=== PATIENT | male | born 1950 | race Caucasian/White ===

== ENCOUNTER 2016-08-15 17:18 | Emergency (ER) | payer MEDICARE ==
[~2016-08-15] VITALS: Ht 182.9 cm; Wt 73.0 kg
[2016-08-15] VITALS (9 sets, daily range): BP systolic 80–101; BP diastolic 52–56; PULSE 72–78; RESP 20–24; TEMP 98.5–98.8; O2SAT 91–97
[~2016-08-15 17:18] MED LIST: ASPI81 PO; CARV6.25 PO; CYMB60CA PO; ESCI10TA PO; METH10TA6 PO; METO10TA PO; OXYC15TA PO; PERC10TA27 PO; PRIN10TA PO; SIMV40 PO; TAB-TAB PO; TEST1.623 TD; TRAZ50TA78 PO; [UNRECOGNIZED DRUG - OTHER] PO
--- NOTE | 2016-08-15 17:43 | PD ---
HPI Chief Complaint: Respiratory Symptoms Time Seen by Provider: 17:24 Travel History International Travel<30 days: No Contact w/Intl Traveler<30days: No Traveled to known affect area: No History of Present Illness HPI This patient complains of chest pain and shortness of breath. Started yesterday evening. He said rather continual chest pressure since then. He has had 2 stents placed 5 years ago. He denies any cardiac testing since he really doesn't seem sure. Patient is a lifelong smoker who has continued to smoke despite coronary disease. Denies fever. No pleuritic pain. Symptoms severity is moderate. No alleviating factors. Duration one day PFSH Past Medical History Autoimmune Disease: No Blood Disorders: No Depression: Yes Cancer: No Cardiovascular Problems: Yes High Cholesterol: Yes Chemotherapy: No COPD: Yes Coronary Artery Disease: Yes Diabetes: No Diminished Hearing: No Endocrine: No Gastrointestinal Disorders: Yes GERD: Yes Genitourinary: No Hypertension: Yes Immune Disorder: No Musculoskeletal: Yes Neurologic: No (FAMILY LISTS "BACKPAIN" IN NEURO CATEGORY) Psychiatric: Yes Respiratory: Yes Radiation Therapy: No Sleep Apnea: Yes Past Surgical History Coronary Stent: Yes (2 STENTS) Tonsillectomy: Yes Other Surgery: Yes (RIGHT LEG SURGERY IN 2002) Social History Alcohol Use: Yes (OCCASIONAL) Tobacco Use: Yes (1/2 PPD) Substance Use: No Allergies-Medications (Allergen,Severity, Reaction): Coded Allergies: No Known Allergies (Verified , 11/10/15) Reported Meds & Prescriptions Reported Meds & Active Scripts Active Levaquin (Levofloxacin) 750 Mg Tablet 750 Mg PO DAILY Ventolin Hfa 18 GM Inh (Albuterol Sulfate) 90 Mcg/Act Aer 2 Puff INH Q6H PRN Reported V-C Forte (Multiple Vitamins W/ Minerals) Cap 1 Cap PO DAILY Cymbalta (Duloxetine Hcl) 60 Mg Cap 60 Mg PO DAILY Reglan 10 mg (Metoclopramide HCl) 10 Mg Tab 1 Tab PO BID Oxycodone (Oxycodone HCl) 15 Mg Tab 15 Mg PO Q8HR PRN Percocet 10-325 mg (Oxycodone-Acetaminophen 10-325 mg) 1 Tab 1 Tab PO Q8HR PRN Methylphenidate ER (8 Hour) (Methylphenidate HCl) 10 Mg Tab 1 Tab PO DAILY Escitalopram Oxalate 10 Mg Tab 10 Mg PO HS Desyrel (Trazodone HCl) 50 Mg Tab 150 Mg PO HS Androgel (Testosterone) 1.62 % Gel 1.62 % TD DAILY Simvastatin 40 mg (Simvastatin) 40 Mg Tab 1 Tab PO HS Multivitamin (Multivitamins) 1 Tab Tab 1 Tab PO DAILY Aspirin 81 Mg Tab 81 Mg PO BID Prinzide 10/12.5 (HCTZ/Lisinopril) Tab 1 Tab PO DAILY Coreg 6.25 mg (Carvedilol) 6.25 Mg Tab 6.25 Mg PO BID Review of Systems General / Constitutional: No: Fever Eyes: No: Visual changes HENT: No: Headaches Cardiovascular: Positive: Chest Pain or Discomfort Respiratory: Positive: Cough, Shortness of Breath, Wheezing Gastrointestinal: No: Abdominal Pain Genitourinary: No: Dysuria Musculoskeletal: No: Pain Skin: No Rash Neurologic: No: Weakness Psychiatric: No: Depression Endocrine: No: Polydipsia Hematologic/Lymphatic: No: Easy Bruising Physical Exam Narrative GENERAL: Well-nourished, well-developed patient with chest pain and dyspnea. SKIN: Focused skin assessment reveals no rash and nodules. Skin is Warm and dry. HEAD: Atraumatic. Normocephalic. EYES: Pupils equal and round. No scleral icterus. No injection or drainage. ENT: No nasal bleeding or discharge. Mucous membranes pink and moist. NECK: Trachea midline. No JVD. CARDIOVASCULAR: Regular rate and rhythm. No murmur appreciated. RESPIRATORY: Some accessory muscle use. Diminished breath sounds throughout with some expiratory wheeze. Breath sounds equal bilaterally. GASTROINTESTINAL: Abdomen soft, non-tender, nondistended. Hepatic and splenic margins not palpable. MUSCULOSKELETAL: No obvious deformities. No clubbing. No cyanosis. No edema. NEUROLOGICAL: Awake and alert. No obvious cranial nerve deficits. Motor grossly within normal limits. Normal speech. PSYCHIATRIC: Appropriate mood and affect; insight and judgment normal. Data Data Last Documented VS Vital Signs Date Time Temp Pulse Resp B/P Pulse Ox O2 Delivery O2 Flow Rate FiO2 08/15/16 18:32 75 20 96/56 97 Room Air 2 08/15/16 17:26 98.5 Orders Electrocardiogram (08/15/16 17:34) Basic Metabolic Panel (Bmp) (08/15/16 17:34) Ckmb (Isoenzyme) Profile (08/15/16 17:34) Complete Blood Count With Diff (08/15/16 17:34) Prothrombin Time / Inr (Pt) (08/15/16 17:34) Act Partial Throm Time (Ptt) (08/15/16 17:34) Troponin I (08/15/16 17:34) Chest, Single Ap (08/15/16 17:34) Ecg Monitoring (08/15/16 17:34) Iv Access Insert/Monitor (08/15/16 17:34) Oximetry (08/15/16 17:34) Oxygen Administration (08/15/16 17:34) Sodium Chloride 0.9% Flush (Ns Flush) (08/15/16 17:45) Albuterol-Ipratropium Neb (Duoneb Neb) (08/15/16 17:45) Methylprednisolone So Succ Inj (Solumedr (08/15/16 17:45) Sodium Chlor 0.9% 1000 Ml Inj (Ns 1000 M (08/15/16 18:15) Sodium Chlor 0.9% 1000 Ml Inj (Ns 1000 M (08/15/16 18:15) Piperacil-Tazo 3.375 Gm Premix (Zosyn 3. (08/15/16 18:15) Blood Culture (08/15/16 18:02) Lactic Acid (08/15/16 18:02) Labs Laboratory Tests Test 08/15/16 08/15/16 17:40 18:15 White Blood Count 15.6 TH/MM3 Red Blood Count 4.25 MIL/MM3 Hemoglobin 14.3 GM/DL Hematocrit 41.9 % Mean Corpuscular Volume 98.6 FL Mean Corpuscular Hemoglobin 33.7 PG Mean Corpuscular Hemoglobin 34.1 % Concent Red Cell Distribution Width 15.7 % Platelet Count 270 TH/MM3 Mean Platelet Volume 7.7 FL Neutrophils (%) (Auto) 90.9 % Lymphocytes (%) (Auto) 1.7 % Monocytes (%) (Auto) 7.2 % Eosinophils (%) (Auto) 0.1 % Basophils (%) (Auto) 0.1 % Neutrophils # (Auto) 14.2 TH/MM3 Lymphocytes # (Auto) 0.3 TH/MM3 Monocytes # (Auto) 1.1 TH/MM3 Eosinophils # (Auto) 0.0 TH/MM3 Basophils # (Auto) 0.0 TH/MM3 CBC Comment AUTO DIFF Differential Comment AUTO DIFF CONFIRMED Prothrombin Time 11.9 SEC Prothromb Time International 1.1 RATIO Ratio Activated Partial 35.4 SEC Thromboplast Time Sodium Level 134 MEQ/L Potassium Level 4.1 MEQ/L Chloride Level 94 MEQ/L Carbon Dioxide Level 28.3 MEQ/L Anion Gap 12 MEQ/L Blood Urea Nitrogen 55 MG/DL Creatinine 1.60 MG/DL Estimat Glomerular Filtration 43 ML/MIN Rate Random Glucose 122 MG/DL Calcium Level 8.4 MG/DL Total Creatine Kinase 50 U/L Troponin I LESS THAN 0.02 NG/ML Lactic Acid Level 1.1 mmol/L [facility] Medical Decision Making Medical Screen Exam Complete: Yes Emergency Medical Condition: Yes Medical Record Reviewed: Yes Differential Diagnosis Differential diagnosis includes COPD, asthma, pneumonia, bronchitis, CHF, ACS Narrative Course I have reviewed the patient's electronic medical record. IV placed I reviewed the EKG which shows sinus rhythm without ectopy. No acute ST elevation I reviewed the chest x-ray which shows a very large right sided consolidation consistent with pneumonia Extended cardiac monitoring shows sinus rhythm without ectopy CBC shows leukocytosis of 15,000 Metabolic profile shows prerenal azotemia with BUN of 55 and creatinine 1.5. CK is normal Troponin is normal Coagulation studies are normal He had aspirin today I gave him a series of 3 nebulizer treatments I gave him IV Solu-Medrol Lactate is ordered and pending Blood culture obtained followed by dose of Zosyn IV Patient blood pressure dropped to 80 systolic Is critically ill with hypotension and shortness of breath Has a severe sepsis due to pneumonia presentation here I gave him 2 L normal saline IV bolus and will reassess pressure On reassessment his blood pressure is 96 systolic Saturation mid 90s on 2 L cannula Patient called me back into the room very adamant about leaving. 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 Time to perform other separately billable procedures was not included in the critical care time. My time did not include minutes spent treating any other patients simultaneously or on activities that did not directly contribute to the patient's treatment. The services I provided to this patient were to treat and/or prevent clinically significant deterioration that could result in: Cardiopulmonary arrest, septic shock, cardiac arrhythmia I provided critical care services requiring my management, as noted below: Chart data review, documentation time, medication orders and management, vital sign assessments/reviewing monitor data, ordering and reviewing lab tests, ordering and interpreting/reviewing x-rays and diagnostic studies, care of the patient and discussion of the patient with the admitting physicians. Sepsis Criteria SIRS Criteria (2 or more): WBC > 45865, < 4000 or > 10% bands Sepsis Criteria (SIRS+source): Infect source susp/known Severe Sepsis (+one): Hypotension Criteria Outcome: Meets severe sepsis criteria Diagnosis Primary Impression: Severe sepsis Additional Impression: Right upper lobe pneumonia Qualified Code: J18.1 - Pneumonia of right upper lobe due to infectious organism Scripts Levofloxacin (Levaquin)750 Mg [id number] Mg PO DAILY #10 Prov:Guanakito Shannon MD 08/15/16 Albuterol 18 GM Inh (Ventolin Hfa 18 GM Inh)90 Mcg/Act Aer2 Puff INH Q6H PRN ( SHORTNESS OF BREATH) #1 INHALER Ref 0 Prov:Guanakito Shannon MD 08/15/16 Disposition: 07 AGAINST MEDICAL ADVICE Guanakito Shannon MD Aug 15, 2016 17:43
[2016-08-15 17:44] LABS: AUTOMATED NEUTROPHIL # 14.2 TH/MM3 (1.8-7.7); BASOPHIL % 0.1 % (0.0-2.0); EOSINOPHIL % 0.1 % (0.0-4.0); HEMATOCRIT 41.9 % (39.0-51.0); LYMPH % 1.7 % (9.0-44.0); LYMPHOCYTE # 0.3 TH/MM3 (1.0-4.8); MEAN CELL VOLUME 98.6 FL (80.0-100.0); MEAN CORPUSCULAR HEMOGLOBIN 33.7 PG (27.0-34.0); MEAN CORPUSCULAR HGB CONC 34.1 % (32.0-36.0); MONO % 7.2 % (0.0-8.0); NEUT % 90.9 % (16.0-70.0); PLATELET COUNT 270 TH/MM3 (150-450); RED BLOOD COUNT 4.25 MIL/MM3 (4.50-5.90); RED CELL DISTRIBUTION WIDTH 15.7 % (11.6-17.2); WHITE BLOOD COUNT 15.6 TH/MM3 (4.0-11.0)
[2016-08-15] MEDS ORDERED: SODIUM CHLORIDE 0.9% FLUSH 10 ML FLUSH IVF PRN (17:45)
[2016-08-15] MEDS ORDERED: methylPREDNISolone SOD SUCC 125 MG/2 ML VIAL IV PUSH ONE (17:45)
[2016-08-15] MEDS ORDERED: RESP: ALBUTEROL 2.5 MG/IPRATROPIUM 0.5 MG NEB (SCH) NEB ONE (17:45)
[2016-08-15 17:46] LABS: HEMO FLAGS AUTO DIFF
[2016-08-15 17:53] LABS: CHLORIDE 94 MEQ/L (98-107); POTASSIUM 4.1 MEQ/L (3.5-5.1); SODIUM (NA) 134 MEQ/L (136-145)
[2016-08-15 17:57] LABS: ANION GAP 12 MEQ/L (5-15); BICARBONATE 28.3 MEQ/L (21.0-32.0); BLOOD UREA NITROGEN 55 MG/DL (7-18)
[2016-08-15 17:59] LABS: APTT (PATIENT) 35.4 SEC (24.3-30.1); INTERNATIONAL NORMALIZED RATIO 1.1 RATIO; PROTHROMBIN TIME - PATIENT 11.9 SEC (9.8-11.6)
[2016-08-15 18:00] LABS: GLOMERULAR FILTRATION RATE 43 ML/MIN (>89)
[2016-08-15] MEDS ORDERED: SODIUM CHLOR 0.9% 1000 ML INJ 1,000 ML IV ONE ×2 (18:15)
[2016-08-15] MEDS ORDERED: PIPERACIL-TAZO 3.375 GM PREMIX 50 ML IV ONE (18:15)
--- NOTE | 2016-08-15 18:18 | RADHPO ---
EXAM DATE/TIME: 08/15/2016 17:42 [facility] COMPARISON: CHEST SINGLE AP, August 20, 2011, 14:22. INDICATIONS : Shortness of breath. MEDICAL HISTORY : Chronic obstructive pulmonary disease. Coronary artery disease. SURGICAL HISTORY : Coronary artery stent. ENCOUNTER: Initial ACUITY: 2 days PAIN SCORE: 0/10 LOCATION: Bilateral chest FINDINGS: Portable AP view of the chest demonstrates a normal-sized cardiac silhouette with calcification of th e aorta. Lungs are underinflated. There is severe air space consolidation in the right upper and righ t midlung zone. No pleural effusion is identified. Left lung demonstrates no abnormality. Bones and s oft tissues demonstrate no acute finding. CONCLUSION: Severe air space consolidation in the right upper lobe. This could represent an infectious process/pn eumonia in the appropriate clinical setting. Recommend followup imaging following appropriate treatme nt to confirm resolution. Agustín Larsen MD on August 15, 2016 at 18:15 Board Certified Radiologist. This report was verified electronically.
[2016-08-15 18:20] LABS: SCAN/DIFF AUTO DIFF CONFIRMED
[2016-08-15 18:32] LABS: CREATINE KINASE 50 U/L (39-308)
[2016-08-15] MEDS ORDERED: VENTAER INH (18:43)
[2016-08-15] MEDS ORDERED: LEVA750T9 PO (18:43)
[2016-08-15] MEDS ORDERED: ESCI20TA PO (22:00)
[2016-08-15] MEDS ORDERED: SIMV40TA PO (22:00)
[2016-08-15] MEDS ORDERED: LISI10TA PO (22:00)
[2016-08-15] MEDS ORDERED: CYMB60CA PO (22:00)
[2016-08-15] MEDS ORDERED: TRAZ100T6 PO (22:00)
[2016-08-15] MEDS ORDERED: [UNRECOGNIZED DRUG - OTHER] PO (22:00)
[2016-08-15] MEDS ORDERED: PRIL20TA2 PO (22:00)
[2016-08-15] MEDS ORDERED: ASPI81CH37 CHEW (22:00)
[2016-08-15] MEDS ORDERED: CARV6.252 PO (22:00)
[2016-08-15] MEDS ORDERED: ANDR1.62 TOPICAL (22:46)
[2016-08-15] MEDS ORDERED: METHY10 PO (22:46)
--- NOTE | 2016-08-16 16:47 | EKG ---
Date Performed: 08/15/2016 Time Performed: 17:29:40 PTAGE: 65 years EKG: Sinus rhythm RIGHT BUNDLE BRANCH BLOCK ABNORMAL ECG PREVIOUS TRACING 01/11/2014 16.36.16 Compared to previous tracing, the patient now in right bu ndle branch block. DOCTOR: Herminia Emmanuel Interpretating Date/Time 08/16/2016 16:44:33
--- NOTE | 2016-08-16 16:47 | EKG ---
Date Performed: 08/15/2016 Time Performed: 18:02:53 PTAGE: 65 years EKG: Sinus rhythm RIGHT BUNDLE BRANCH BLOCK ABNORMAL ECG PREVIOUS TRACING : 08/15/2016 17.29.40 Since previous tracing, no significant change noted DOCTOR: Herminia Emmanuel Interpretating Date/Time 08/16/2016 16:45:48
== END 2016-08-15 19:09 | disposition left against medical advice (07) ==
LOC: PHED 17:18
DX: A41.9 Sepsis, unspecified organism (principal); J18.9 Pneumonia, unspecified organism; R65.20 Severe sepsis without septic shock; I45.10 Unspecified right bundle-branch block; E78.00 Pure hypercholesterolemia, unspecified; J44.9 Chronic obstructive pulmonary disease, unspecified; I25.10 Atherosclerotic heart disease of native coronary artery without angina pectoris; I10 Essential (primary) hypertension; K21.9 Gastro-esophageal reflux disease without esophagitis; F17.210 Nicotine dependence, cigarettes, uncomplicated; Z95.5 Presence of coronary angioplasty implant and graft
CPT/HCPCS: 71010; 80048; 82550; 83605; 84484; 85025; 85610; 85730; 87040; 93005; 94640; 94664; 96360; 96365; 96375; 99291; J2543; J2930; J7030